=== PATIENT | male | born 1965 | race African-American/Black ===

== ENCOUNTER 2020-07-28 13:41 | Emergency (ER) | payer BC, OTHER ==
[2020-07-28 13:47] VITALS: BMI 35.7
[2020-07-28] MEDS ORDERED: SODIUM CHLORIDE 0.9% 1000 ML INFUS.BAG IV ONE (14:43)
[2020-07-28 15:09] LABS: BASO % 0.9 % (0-2.0); EOS % 2.3 % (0-4.5); HEMATOCRIT 41.8 % (35.4-49); HEMOGLOBIN 14.3 GM/dL (11.7-16.9); LYMPH % 21.6 % (8-40); MCHC 34.2 g/dl (32.0-35.9); MEAN CELL VOLUME 90.8 fl (80-96); MEAN PLT VOLUME 9.1 fl (7.5-11.1); MONO % 7.5 % (3.8-10.2); NEUT % 67.7 % (42.8-82.8); PLATELET COUNT 207 K/MM3 (134-434); RDW 12.7 % (11.9-15.9); WHITE BLOOD COUNT 9.1 K/mm3 (4.0-10.0)
[2020-07-28 15:16] LABS: INR 0.95 (0.83-1.09); PROTHROMBIN TIME (PATIENT) 11.7 SEC (9.7-13.0)
[2020-07-28 15:19] LABS: ACTIVATED PTT 33.4 SECONDS (25.2-36.5)
[2020-07-28 15:36] LABS: CALCIUM 9.3 mg/dL (8.5-10.1)
[2020-07-28 15:37] LABS: ALBUMIN 3.3 g/dl (3.4-5.0); BLOOD UREA NITROGEN 13.6 mg/dL (7-18)
[2020-07-28 15:40] LABS: CREATININE 0.8 mg/dL (0.55-1.3)
[2020-07-28 15:42] LABS: BILIRUBIN,TOTAL 0.6 mg/dL (0.2-1); TOT PROT 7.2 g/dl (6.4-8.2)
[2020-07-28 15:43] LABS: EPI CELLS 8 /uL (0-25.1); HYALINE CASTS 2 /uL (0-3.1); PH,URINE 6.5 (5.0-8.0); URINE APPEARANCE CLEAR; URINE BACTERIA 7 /uL (0-1359); URINE BILIRUBIN NEGATIVE (NEGATIVE); URINE COLOR DK YELLOW; URINE GLUCOSE (UA) NEGATIVE (NEGATIVE); URINE KETONE TRACE (NEGATIVE); URINE LEUK ESTERASE NEGATIVE (NEGATIVE); URINE NITRITE NEGATIVE (NEGATIVE); URINE PROTEIN 3+ (NEGATIVE); URINE RBC 24 /uL (0-23.9); URINE WBC 4 /uL (0-25.8)
[2020-07-28 17:29] VITALS: BP 119/85; PULSE 88; TEMP 97.7
[2020-07-28] MEDS ORDERED: metroNIDAZOLE 250 MG TABLET PO ONE (18:13)
[2020-07-28] MEDS ORDERED: CIPROFLOXACIN 500 MG TABLET (RESTRICTED TO ID) PO ONE (18:13)
[2020-07-28] MEDS ORDERED: metroNIDAZOLE 250 MG TABLET ONE (18:30)
== END 2020-07-28 18:38 | disposition home or self-care (01) ==
LOC: JER 13:41
DX: K57.92 Diverticulitis of intestine, part unspecified, without perforation or abscess without bleeding (principal); R10.31 Right lower quadrant pain
CPT/HCPCS: 36415; 74177-TC; 80053; 81003; 85025; 85610; 85730; 86850; 86900; 86901; 99285-25; Q9967